=== PATIENT | female | born 1950 | race Caucasian/White ===

== ENCOUNTER 2024-10-14 06:22 | Day surgery (SDC) | payer MEDICARE, BC, SELFPAY ==
[2024-10-14 10:35] LABS: Glucose - Point of Care 181 mg/dl (70-99)
== END 2024-10-14 15:04 | disposition home or self-care (01) ==
LOC: GI 06:22
PROVIDERS: ATTENDING PHYSICIAN Internal Medicine; FAMILY PHYSICIAN Internal Medicine
DX: Z12.11 Encounter for screening for malignant neoplasm of colon (principal); D12.3 Benign neoplasm of transverse colon; D12.7 Benign neoplasm of rectosigmoid junction; K64.8 Other hemorrhoids; K29.50 Unspecified chronic gastritis without bleeding; K31.89 Other diseases of stomach and duodenum; K31.7 Polyp of stomach and duodenum; R10.12 Left upper quadrant pain; Z80.0 Family history of malignant neoplasm of digestive organs
CPT/HCPCS: 45385; 45380; 43239; 88305; 82962; 88341; 88342

== ENCOUNTER 2024-11-22 06:18 | Day surgery (SDC) | payer MEDICARE, BC, SELFPAY ==
[2024-11-22 12:22] LABS: Glucose - Point of Care 129 mg/dl (70-99)
== END 2024-11-22 14:05 | disposition home or self-care (01) ==
LOC: GI 06:18
PROVIDERS: ATTENDING PHYSICIAN Internal Medicine
DX: R10.13 Epigastric pain (principal); K29.70 Gastritis, unspecified, without bleeding; K31.7 Polyp of stomach and duodenum; K29.50 Unspecified chronic gastritis without bleeding; C7A.8 Other malignant neuroendocrine tumors
CPT/HCPCS: 43251; 43239; 82962; 88305; 88341; 88342

== ENCOUNTER → 2025-01-26 13:58 | Outpatient (REF) | payer MEDICARE, BC, SELFPAY ==
[2025-01-26 15:11] LABS: ALT (SGPT) 24 U/L (0-35); AST (SGOT) 26 U/L (14-36); Albumin 4.3 g/dl (3.5-5.0); Alkaline Phosphatase 76 U/L (38-126); Blood Urea Nitrogen 21 mg/dl (7-17); Calcium 10.4 mg/dl (8.4-10.2); Carbon Dioxide 30 mmol/L (22-30); Chloride 101 mmol/L (98-107); Glucose 229 mg/dl (70-99); Potassium 4.3 mmol/L (3.5-5.1); Sodium 138 mmol/L (135-145); Total Protein 7.5 g/dl (6.3-8.2); eGFR > 60.00
== END ==
LOC: REG 13:58
PROVIDERS: ATTENDING PHYSICIAN Internal Medicine Hematology & Oncology
DX: C7A.092 Malignant carcinoid tumor of the stomach (principal)
CPT/HCPCS: 36415; 80053

== ENCOUNTER → 2025-01-28 11:16 | Outpatient (REF) | payer MEDICARE, BC, SELFPAY | LOC: RAD 11:16 | PROVIDERS: ATTENDING PHYSICIAN Internal Medicine Hematology & Oncology; FAMILY PHYSICIAN Internal Medicine | DX: C7A.092 Malignant carcinoid tumor of the stomach (principal) | CPT/HCPCS: 71260; 74177; Q9967 ==